=== PATIENT | female | born 1945 | race Caucasian/White ===

== ENCOUNTER 2020-06-05 15:57 | Inpatient (IN) ==
[2020-06-05] MEDS ORDERED: Nitroglycerin 0.4 MG TAB.SUBL SL PRN (21:35)
[2020-06-05] MEDS: cephALEXin 500 MG CAPSULE PO SCH (22:06)
[2020-06-06] MEDS: *HR* OxyCODONE/APAP 5/325 TABLET PO PRN ×3 (02:53→20:38)
[2020-06-06 04:27] LABS: Basophils % 0.4 %; Eosinophils # 0.1 K/mcL (0.0-0.6); Eosinophils % 1.4 %; Immature Granulocytes % 0.2 % (0-4); Lymphocytes # 1.1 K/mcL (0.6-4.6); Lymphocytes % 22.9 %; Mean Corpuscular HGB Conc 32.1 g/dL (31.6-35.5); Mean Corpuscular Hemoglobin 29.7 pg (28.0-33.3); Mean Corpuscular Volume 92.4 fL (83.0-100.0); Mean Platelet Volume 9.1 fL (9.4-12.4); Monocytes # 0.5 K/mcL (0.0-1.3); Monocytes % 10.7 %; Neutrophils # 3.2 K/mcL (1.6-8.9); Platelet Count 315 K/mcL (140-400); Red Blood Count 3.03 M/mcL (3.82-4.97); Red Cell Distribution Width 13.5 % (11.5-14.5); Segmented Neutrophils % 64.4 %; White Blood Count 4.9 K/mcL (4.3-11.1)
[2020-06-06 04:45] LABS: BUN/Creatinine Ratio 17 (6-26); Blood Urea Nitrogen 13 mg/dL (8-23); Calcium 9.3 mg/dL (8.6-10.3); Carbon Dioxide 26 mEq/L (23-29); Chloride 104 mEq/L (98-107); Glucose 99 mg/dL (70-105); Osmolality,Calculated 284 (280-300); Potassium 3.9 mEq/L (3.5-5.1); Sodium 137 mEq/L (136-145); eGFR For African Americans > 60 (> 60); eGFR For Non-African Americans > 60 (> 60)
[2020-06-06 05:20] LABS: INR 1.2; Prothrombin Time 13.5 Seconds (9.4-12.1)
[2020-06-06] MEDS: Sennosides/Docusate Sodium TABLET PO PRN (06:35)
[2020-06-06] MEDS: Aspirin 81 MG TAB.CHEW PO SCH (09:34)
[2020-06-06] MEDS: cephALEXin 500 MG CAPSULE PO SCH ×2 (09:34→20:38)
[2020-06-06] MEDS: Metoprolol XL (24 HR) Succ 25 MG TAB.ER.24H PO SCH (09:34)
[2020-06-06] MEDS: Losartan/HCTZ 50-12.5 TABLET PO SCH (09:34)
[2020-06-07] MEDS: *HR* OxyCODONE/APAP 5/325 TABLET PO PRN ×2 (03:46→14:51)
[2020-06-07] MEDS: Aspirin 81 MG TAB.CHEW PO SCH (09:21)
[2020-06-07] MEDS: Losartan/HCTZ 50-12.5 TABLET PO SCH (09:21)
[2020-06-07] MEDS: cephALEXin 500 MG CAPSULE PO SCH ×2 (09:22→21:23)
[2020-06-07] MEDS: Metoprolol XL (24 HR) Succ 25 MG TAB.ER.24H PO SCH (09:22)
[2020-06-08] MEDS: *HR* OxyCODONE/APAP 5/325 TABLET PO PRN ×4 (00:03→20:00)
[2020-06-08] MEDS: Aspirin 81 MG TAB.CHEW PO SCH (10:34)
[2020-06-08] MEDS: cephALEXin 500 MG CAPSULE PO SCH ×2 (10:34→20:00)
[2020-06-08] MEDS: Losartan/HCTZ 50-12.5 TABLET PO SCH (10:34)
[2020-06-08] MEDS: Metoprolol XL (24 HR) Succ 25 MG TAB.ER.24H PO SCH (10:34)
[2020-06-08] MEDS: Sennosides/Docusate Sodium TABLET PO PRN (10:39)
[2020-06-09] MEDS: *HR* OxyCODONE/APAP 5/325 TABLET PO PRN ×3 (02:10→17:42)
[2020-06-09] MEDS: Aspirin 81 MG TAB.CHEW PO SCH (10:14)
[2020-06-09] MEDS: cephALEXin 500 MG CAPSULE PO SCH ×2 (10:14→19:36)
[2020-06-09] MEDS: Metoprolol XL (24 HR) Succ 25 MG TAB.ER.24H PO SCH (10:14)
[2020-06-09] MEDS: Losartan/HCTZ 50-12.5 TABLET PO SCH (10:14)
[2020-06-10] MEDS: *HR* OxyCODONE/APAP 5/325 TABLET PO PRN ×2 (04:04→20:18)
[2020-06-10] MEDS: cephALEXin 500 MG CAPSULE PO SCH ×2 (09:28→20:19)
[2020-06-10] MEDS: Aspirin 81 MG TAB.CHEW PO SCH (09:28)
[2020-06-10] MEDS: Losartan/HCTZ 50-12.5 TABLET PO SCH (09:29)
[2020-06-10] MEDS: Metoprolol XL (24 HR) Succ 25 MG TAB.ER.24H PO SCH (09:29)
[2020-06-11] MEDS: *HR* OxyCODONE/APAP 5/325 TABLET PO PRN ×2 (04:53→20:33)
[2020-06-11] MEDS: Aspirin 81 MG TAB.CHEW PO SCH (09:46)
[2020-06-11] MEDS: Metoprolol XL (24 HR) Succ 25 MG TAB.ER.24H PO SCH (09:46)
[2020-06-11] MEDS: Losartan/HCTZ 50-12.5 TABLET PO SCH (09:46)
[2020-06-12] MEDS: *HR* OxyCODONE/APAP 5/325 TABLET PO PRN ×2 (05:19→17:18)
[2020-06-12 07:55] LABS: Basophils % 0.4 %; Eosinophils # 0.1 K/mcL (0.0-0.6); Eosinophils % 1.6 %; Hematocrit 33.3 % (35.3-44.9); Hemoglobin 10.8 g/dL (11.5-15.4); Immature Granulocytes % 0.4 % (0-4); Lymphocytes # 1.5 K/mcL (0.6-4.6); Lymphocytes % 32.7 %; Mean Corpuscular HGB Conc 32.4 g/dL (31.6-35.5); Mean Corpuscular Volume 92.5 fL (83.0-100.0); Mean Platelet Volume 9.6 fL (9.4-12.4); Monocytes # 0.5 K/mcL (0.0-1.3); Monocytes % 11.4 %; Neutrophils # 2.4 K/mcL (1.6-8.9); Platelet Count 306 K/mcL (140-400); Red Cell Distribution Width 13.7 % (11.5-14.5); Segmented Neutrophils % 53.5 %; White Blood Count 4.5 K/mcL (4.3-11.1)
[2020-06-12 08:06] LABS: BUN/Creatinine Ratio 25 (6-26); Blood Urea Nitrogen 21 mg/dL (8-23); Calcium 9.7 mg/dL (8.6-10.3); Carbon Dioxide 27 mEq/L (23-29); Chloride 100 mEq/L (98-107); Glucose 106 mg/dL (70-105); Osmolality,Calculated 283 (280-300); Potassium 3.5 mEq/L (3.5-5.1); Sodium 135 mEq/L (136-145); eGFR For African Americans > 60 (> 60); eGFR For Non-African Americans > 60 (> 60)
[2020-06-12] MEDS: Losartan/HCTZ 50-12.5 TABLET PO SCH (09:44)
[2020-06-12] MEDS: Sennosides/Docusate Sodium TABLET PO PRN (09:44)
[2020-06-12] MEDS: Metoprolol XL (24 HR) Succ 25 MG TAB.ER.24H PO SCH (09:44)
[2020-06-12] MEDS: Aspirin 81 MG TAB.CHEW PO SCH (09:44)
[2020-06-12] MEDS: Acetaminophen 325 MG TABLET PO PRN ×2 (14:15→21:55)
[2020-06-13] MEDS: *HR* OxyCODONE/APAP 5/325 TABLET PO PRN ×3 (02:42→16:03)
[2020-06-13] MEDS ORDERED: Ondansetron ODT 4 MG TAB.RAPDIS SL PRN (02:58)
[2020-06-13] MEDS: Aspirin 81 MG TAB.CHEW PO SCH (08:27)
[2020-06-13] MEDS: Losartan/HCTZ 50-12.5 TABLET PO SCH (08:27)
[2020-06-13] MEDS: Metoprolol XL (24 HR) Succ 25 MG TAB.ER.24H PO SCH (08:27)
[2020-06-13] MEDS: Sennosides/Docusate Sodium TABLET PO PRN (08:34)
[2020-06-14] MEDS: *HR* OxyCODONE/APAP 5/325 TABLET PO PRN ×2 (01:15→08:46)
[2020-06-14 07:08] VITALS: BP 117/70
[2020-06-14] MEDS: Aspirin 81 MG TAB.CHEW PO SCH (08:39)
[2020-06-14] MEDS: Losartan/HCTZ 50-12.5 TABLET PO SCH (08:40)
[2020-06-14] MEDS: Metoprolol XL (24 HR) Succ 25 MG TAB.ER.24H PO SCH (08:40)
== END 2020-06-14 13:57 | disposition home health service (06) | DRG 560 ==
LOC: INPPIK 20:53
PROVIDERS: ADMIT Family Medicine; ATTEND Family Medicine